=== PATIENT | female | born 2000 | race African-American/Black ===

== ENCOUNTER 2023-11-22 20:28 | Emergency (ER) | payer MEDICAID ==
[~2023-11-22] VITALS: Ht 162.6 cm; Wt 118.0 kg
[2023-11-22 20:38] VITALS: BP 132/85; PULSE 100; RESP 14; TEMP 98; O2SAT 100
[2023-11-22] MEDS ORDERED: CEFTRIAXONE SODIUM 500MG VIAL IM ONE (21:00)
[2023-11-22] MEDS ORDERED: CEFTRIAXONE SODIUM 500MG VIAL IM NR (21:00)
[2023-11-22 21:25] LABS: CLARITY URINE CLOUDY (CLEAR); COLOR URINE YELLOW (YELLOW); GLUCOSE URINE NEGATIVE (NEGATIVE); KETONES URINE TRACE (NEGATIVE); LEUKOCYTE ESTERASE URINE TRACE (NEGATIVE); NITRITE URINE NEGATIVE (NEGATIVE); OCCULT BLOOD URINE NEGATIVE (NEGATIVE); PROTEIN URINE NEGATIVE (NEGATIVE); SPECIFIC GRAVITY URINE 1.025 (1.005-1.030)
[2023-11-22 21:46] LABS: BACTERIA URINE 2+; RBC URINE 0-2 /hpf (0-2); SQUAMOUS EPITHELIAL CELL URINE 2+ /lpf (RARE/1+)
[2023-11-22] MEDS ORDERED: DEXAMETHASONE 10 MG/ML VIAL PO ONE (23:00)
[2023-11-22] MEDS ORDERED: DOXY100T2 MT (23:29)
[2023-11-23] MEDS ORDERED: AMOX500T2 MT (00:32)
[2023-11-25 04:10] LABS: CHLAMYDIA TRACHOMATIS NAA Negative (Negative); NEISSERIA GONORRHOEAE NAA Negative (Negative)
== END 2023-11-22 23:45 | disposition home or self-care (01) ==
LOC: ER 20:28
DX: J02.9 Acute pharyngitis, unspecified (principal); J45.909 Unspecified asthma, uncomplicated; Z88.6 Allergy status to analgesic agent; Z11.3 Encounter for screening for infections with a predominantly sexual mode of transmission; Z98.890 Other specified postprocedural states
CPT/HCPCS: 99283; 86592; 87491; 87591; 81003; 81025; 87430; 96372; J0696; J1100

== ENCOUNTER 2024-08-23 02:55 | Emergency (ER) | payer MEDICAID ==
[~2024-08-23] VITALS: Ht 162.6 cm; Wt 117.8 kg
[~2024-08-23 02:55] MED LIST: AMOX500T2 MT; DOXY100T2 MT
[2024-08-23 03:05] VITALS: BP 137/90; RESP 18; TEMP 98.2; O2SAT 100
[2024-08-23 03:08] VITALS: PULSE 134; O2SAT 98
[2024-08-23] MEDS: OXYCODONE HCL/ACETAMINOPHEN 5/325MG TABLET PO STA (07:13)
== END 2024-08-23 07:20 | disposition home or self-care (01) ==
LOC: ER 03:04
DX: S01.412A Laceration without foreign body of left cheek and temporomandibular area, initial encounter (principal); J45.909 Unspecified asthma, uncomplicated; Z88.6 Allergy status to analgesic agent; Y04.0XXA Assault by unarmed brawl or fight, initial encounter; Y93.89 Activity, other specified; Y92.89 Other specified places as the place of occurrence of the external cause; Y99.9 Unspecified external cause status
CPT/HCPCS: 99283